=== PATIENT | female | born 2000 | race Caucasian/White ===

== ENCOUNTER 2019-02-02 02:33 | Emergency (ER) | payer BC ==
[~2019-02-02] VITALS: Ht 160 cm; Wt 93.3 kg
[2019-02-02 02:37] VITALS: Ht 160 cm; Wt 93.3 kg
[2019-02-02] MEDS ORDERED: DEXAMETHASONE 10 MG/ML 1 ML INJ PO ONE (04:00)
[2019-02-02] MEDS ORDERED: AMOX1TAB10 PO (04:38)
[2019-02-02 05:32] VITALS: BP 123/77; PULSE 78; RESP 18
--- NOTE | 2019-02-08 05:18 | ERD ---
ER Documentation Chief Complaint Chief Complaint RIGHT EAR PAIN WITH ST X1DAY HPI 18-year-old female presents with complaints of right ear pain with sore throat x1 day. Patient notes to recently recovered from a cold within the past few weeks. Patient has not taken any medication to alleviate her symptoms which she rates as a 6 out of 10. Denies fevers, chills, sweats. No history of IVDA, malignancy, or autoimmunity. ROS All systems reviewed and are negative except as per history of present illness. Medications Home Meds Active Scripts Amoxicillin/Potassium Clav (Amox-Clav 875-125 mg Tablet) 875-125 mg Tab, 1 TAB PO BID for 10 Days, #20 TAB Prov:ELA VEGAS PA-C 02/02/19 Allergies Allergies: Coded Allergies: No Known Allergy (Unverified , 07/23/11) PMhx/Soc Medical and Surgical Hx: pt denies Medical Hx History of Surgery: Yes (l arm) Anesthesia Reaction: No Hx Neurological Disorder: No Hx Respiratory Disorders: No Hx Cardiac Disorders: No Hx Psychiatric Problems: No Hx Miscellaneous Medical Probl: No (no other medical problems) Hx Alcohol Use: Yes (occasionally) Hx Substance Use: Yes (marijuana) Hx Tobacco Use: No Smoking Status: Never smoker FmHx Family History: No diabetes, No coronary disease, No other Physical Exam Physical Exam Constitutional: Well developed. Well nourished. No acute distress Head/Eyes: Atraumatic. Normocephalic. PERRL. EOMI ENT: Right TM erythematous and bulging. No visible erythema or edema of the right external auditory canal, no visible discharge, foreign body, cerumen impaction. Left TM and external auditory canal unremarkable. Moist mucous membranes. Voice normal. Bilateral tonsillar erythema with 2+ edema , no visible exudates. Uvula is midline. No drooling. Voice is normal. Neck: Supple. No lymphadenopathy. Full range of motion. Cardiovascular: Regular rate and rhythm. No murmurs, rubs, or gallops. Distal pulses intact Respiratory: No respiratory distress. Normal breath sounds. No wheezes, rales, or rhonchi. Neurological: Alert and oriented X 3. Normal speech Psychiatric: Normal mood. Normal affect Results 24 hrs Current Medications Medications Dose Sig/Александр Start Time Status Last (Trade) Ordered Route PRN Stop Time Admin Dose Reason Admin 10 mg ONCE ONCE 02/02/19 DC 02/02/19 Dexamethasone PO 04:00 04:13 (Decadron) 02/02/19 04:01 Procedures/MDM MDM: Patients symptoms and physical exam findings are consistent with acute otitis media and viral pharyngitis. The Right tympanic membrane was erythematous and dull to light reflex on exam. No ear canal swelling or discharge, making otitis externa unlikely. Patient denies any ear discharge and loss of hearing. Denies history of diabetes mellitus. I have low suspicion for malignant otitis externa, mastoiditis, foreign body in ear canal, and TM perforation. I have prescribed the patient Augmentin, and counseled regarding use of Tylenol/Motrin for pain control. Oropharynx was clear with mild tonsilar erythema and edema, but no discharge. Patient given PO Decadron for edema while in ED. Rapid strep performed in ED with negative result. I have counseled patient regarding supportive treatment. On exam patient has NO drooling, pooling of secretions, trismus, or vocal changes. They have full ROM in neck, including being able to extend neck back fully without pain. The uvula is midline. At this time I have low suspicion for epiglottitis, retropharyngeal abscess, peritonsillar abscess, meningitis, and sepsis. Patient is stable for discharge home and outpatient management. Patient is stable for discharge at this time, parents advised to follow up with structures assembler in 1-2 days. Departure Diagnosis: Primary Impression: Otitis media Otitis media type: other nonsuppurative Chronicity: acute Laterality: right Recurrence: non-recurrent Qualified Codes: H65.191 - Other acute nonsuppurative otitis media, right ear Additional Impression: Pharyngitis Pharyngitis/tonsillitis etiology: unspecified etiology Qualified Codes: J02.9 - Acute pharyngitis, unspecified Condition: Stable Patient Instructions: Otitis Media, Abx Tx (Adult), Pharyngitis, Viral [facility] Usted se nuñez hecho un examen mdico de control que le indica que no est en jean claude condicin que requiera tratamiento urgente en el Departamento de Emergencia. Un estudio ms profundo y el tratamiento de cantrell condicin pueden esperar sin ningn riesgo hasta que usted sea atendida/o en el consultorio de cantrell mdico o jean claude clnica. Es responsabilidad suya arreglar jean claude jenna para el seguimiento del ulysses. MANEJO DE CONDICIONES NO URGENTES EN EL FUTURO 1) Si usted tiene un mdico de atencin primaria: Usted debera llamar a cantrell mdico de atencin primaria antes de venir al departamento de emergencia. Despus de las horas de consultorio, cantrell doctor o cantrell asociado/a est disponible por telfono. El mdico o enfermero de gaurav en el servicio telefnico puede asesorarle por natalya medio para atender el problema, o ulysses contrario se puede programar jean claude jenna. 2) Si usted no tiene un mdico de atencin primaria: Llame al mdico o clnica de referencia que aparece abajo iraj las horas de consultorio para hacer jean claude jenna para que le vean. CLINICAS: [facility] [phone] [facility] [phone] [facility] [phone] [facility] [phone] [place] [id number] [phone] [facility]. [phone] ELA MELENDEZ PA-C Feb 08, 2019 05:18
== END 2019-02-02 05:33 | disposition home or self-care (01) ==
LOC: FTE 02:33
DX: H65.191 Other acute nonsuppurative otitis media, right ear (principal)
CPT/HCPCS: 87880; J1100; Z7502; 99283